=== PATIENT | male | born 1965 | race Caucasian/White ===

== ENCOUNTER 2020-02-28 13:09 | Inpatient (IN) | payer OTHER ==
[~2020-02-28] VITALS: Ht 167.6 cm; Wt 53.1 kg
[2020-02-28 13:15] VITALS: Ht 167.6 cm; Wt 53.1 kg
[2020-02-28 14:34] LABS: PLATELET COUNT 194 x10^3mcL (130-400)
[2020-02-28 14:39] LABS: BASOPHIL % 0 % (0-2); RED CELL DISTRIBUTION WIDTH 15.1 % (11.5-14.5)
[2020-02-28 14:46] LABS: ALKALINE PHOSPHATASE 124 U/L (46-116); ALT/SGPT 71 U/L (16-63); AST/SGOT 50 U/L (15-37); BILIRUBIN TOTAL 1.6 mg/dL (0.20-1.00); CALCIUM 8.9 mg/dL (8.5-10.1); CARBON DIOXIDE 29.6 mmol/L (21-32); CHLORIDE SERUM 96 mmol/L (98-107); CREATININE SERUM 0.8 mg/dL (0.7-1.3); GFR1 > 60 mL/min; GLUCOSE SERUM 125 mg/dL (74-106); SODIUM SERUM 132 mmol/L (136-145); TOTAL PROTEIN, SERUM 7.1 g/dL (6.4-8.2)
[2020-02-28 14:57] LABS: ALBUMIN 2.5 g/dL (3.4-5.0); POTASSIUM SERUM 2.8 mmol/L (3.5-5.1)
[2020-02-28 18:20] VITALS: BP 153/84
[2020-02-28 20:00] VITALS: BP 139/92
[2020-02-28 21:24] VITALS: BP 139/92
[2020-02-29 05:59] VITALS: BP 140/86
[2020-02-29 06:47] LABS: BASOPHIL % 0.1 % (0-2); PLATELET COUNT 187 x10^3mcL (130-400)
[2020-02-29 06:53] LABS: RED CELL DISTRIBUTION WIDTH 14.7 % (11.5-14.5)
[2020-02-29 07:24] LABS: ALKALINE PHOSPHATASE 108 U/L (46-116); ALT/SGPT 59 U/L (16-63); AST/SGOT 37 U/L (15-37); BILIRUBIN TOTAL 1.1 mg/dL (0.20-1.00); CALCIUM 8.3 mg/dL (8.5-10.1); CARBON DIOXIDE 26.8 mmol/L (21-32); CHLORIDE SERUM 98 mmol/L (98-107); CREATININE SERUM 0.7 mg/dL (0.7-1.3); GFR1 > 60 mL/min; GLUCOSE SERUM 104 mg/dL (74-106); SODIUM SERUM 132 mmol/L (136-145); TOTAL PROTEIN, SERUM 6.4 g/dL (6.4-8.2)
[2020-02-29 07:25] LABS: ALBUMIN 2.2 g/dL (3.4-5.0)
[2020-02-29 07:49] VITALS: BP 124/83
[2020-02-29] MEDS ORDERED: PROTONIX TR40 M1 PO (09:46)
[2020-02-29 11:48] VITALS: BP 154/97
[2020-02-29 17:10] VITALS: BP 163/92
[2020-02-29 17:46] VITALS: BP 163/92
[2020-02-29 19:58] VITALS: BP 122/75
[2020-03-01 05:12] VITALS: BP 130/83
[2020-03-01 07:27] VITALS: BP 124/80
[2020-03-01 07:33] LABS: ALKALINE PHOSPHATASE 131 U/L (46-116); ALT/SGPT 64 U/L (16-63); AST/SGOT 56 U/L (15-37); BILIRUBIN TOTAL 1.07 mg/dL (0.20-1.00); CALCIUM 7.8 mg/dL (8.5-10.1); CARBON DIOXIDE 22.9 mmol/L (21-32); CHLORIDE SERUM 99 mmol/L (98-107); CREATININE SERUM 0.6 mg/dL (0.7-1.3); GFR1 > 60 mL/min; GLUCOSE SERUM 103 mg/dL (74-106); POTASSIUM SERUM 3.4 mmol/L (3.5-5.1); SODIUM SERUM 131 mmol/L (136-145)
[2020-03-01 07:37] LABS: ALBUMIN 2.1 g/dL (3.4-5.0); TOTAL PROTEIN, SERUM 6.1 g/dL (6.4-8.2)
== END 2020-03-01 16:00 | disposition home or self-care (01) | DRG 241 ==
LOC: ED 13:09 → MU 15:55 → DU 15:55 → MU 18:06
PROVIDERS: Emergency Medicine; Internal Medicine; ADMIT Internal Medicine; ATTEND Internal Medicine
PROC: 0W3P8ZZ Control Bleeding in Gastrointestinal Tract, Via Natural or Artificial Opening Endoscopic (ICD-10-PCS; principal; 2020-02-29 08:30)
DX: K29.71 Gastritis, unspecified, with bleeding (principal); E44.0 Moderate protein-calorie malnutrition; K70.30 Alcoholic cirrhosis of liver without ascites; D64.9 Anemia, unspecified; Z88.6 Allergy status to analgesic agent; K27.9 Peptic ulcer, site unspecified, unspecified as acute or chronic, without hemorrhage or perforation; K31.9 Disease of stomach and duodenum, unspecified; Z68.1 Body mass index [BMI] 19.9 or less, adult
CPT/HCPCS: 43235; 90658; 90732; C9113; G0378; J0696; J1200; J1610; J2250; J2310; J2354; J3010; J3480; J3490; J7030; J7060; Q0092